=== PATIENT | male | born 1995 | race African-American/Black ===

== ENCOUNTER → 2024-01-13 | Outpatient (CLI) | payer OTHER ==
[~2024-01-13] MED LIST: Atropine 1 MG/10 ML SYRINGE IV ONE; Glycopyrrolate 0.2 MG/ML 1 ML VIAL ONE; ePHEDrine 50 MG/10 ML VIAL IV ONE
== END ==
LOC: MHCPAIN 07:40
DX: M47.817 Spondylosis without myelopathy or radiculopathy, lumbosacral region (principal); M54.50 Low back pain, unspecified
CPT/HCPCS: J0461; J0665

== ENCOUNTER → 2024-01-21 | Outpatient (CLI) | payer OTHER | LOC: MHCPAIN 08:56 | DX: M54.50 Low back pain, unspecified (principal); M47.816 Spondylosis without myelopathy or radiculopathy, lumbar region | CPT/HCPCS: G0463 ==

== ENCOUNTER → 2024-02-21 | Outpatient (CLI) | payer OTHER | LOC: MHCPAIN 10:41 | DX: M47.816 Spondylosis without myelopathy or radiculopathy, lumbar region (principal); M54.50 Low back pain, unspecified | CPT/HCPCS: G0463 ==

== ENCOUNTER → 2024-03-02 | Outpatient (CLI) | payer OTHER | LOC: MHCPAIN 09:14 | DX: M47.817 Spondylosis without myelopathy or radiculopathy, lumbosacral region (principal); M54.50 Low back pain, unspecified | CPT/HCPCS: J0665 ==

== ENCOUNTER → 2024-03-06 | Outpatient (CLI) | payer OTHER | LOC: MHCPAIN 09:16 | DX: M47.816 Spondylosis without myelopathy or radiculopathy, lumbar region (principal); M54.50 Low back pain, unspecified; M79.18 Myalgia, other site | CPT/HCPCS: G0463 ==

== ENCOUNTER → 2024-03-10 | Outpatient (CLI) | payer OTHER | LOC: MHCPAIN 08:19 | DX: M79.18 Myalgia, other site (principal); M54.50 Low back pain, unspecified | CPT/HCPCS: J0665; J1010 ==